=== PATIENT | female | born 2000 | race Hispanic/Latino ===

== ENCOUNTER 2023-09-25 10:46 | Inpatient (IN) | payer SELFPAY ==
[~2023-09-25] VITALS: Ht 162.6 cm; Wt 87.5 kg
[2023-09-25 11:14] VITALS: O2SAT 98
[2023-09-25 11:19] LABS: BASOPHILS # (AUTO) 0.08 K/uL (0.00-0.20); BASOPHILS % (AUTO) 0.7 % (0.0-5.0); EOSINOPHILS # (AUTO) 0.05 K/uL (0.00-0.70); EOSINOPHILS % (AUTO) 0.4 % (0.0-8.0); HEMATOCRIT 32.8 % (36-48); IMMATURE GRANULOCYTE ABSOLUTE 0.05 K/uL (0-1); LYMPHOCYTES # (AUTO) 2.2 K/uL (1.0-4.8); LYMPHOCYTES % (AUTO) 18.8 % (21.0-51.0); MEAN CORPUSCULAR HEMOGLOBIN 23.1 pg (27.0-33.0); MEAN CORPUSCULAR HGB CONC 30.8 g/dL (32.0-36.0); MEAN CORPUSCULAR VOLUME 74.9 fL (79-99); MONOCYTES # (AUTO) 0.6 K/uL (0.1-1.0); MONOCYTES % (AUTO) 4.8 % (3.0-13.0); NEUTROPHILS # (AUTO) 8.8 K/uL (1.8-7.7); NEUTROPHILS % (AUTO) 74.9 % (40.0-77.0); PLATELET COUNT (AUTO) 339 K/uL (130-400); RED BLOOD CELL COUNT(AUTO) 4.38 MIL/uL (4.00-5.50); WHITE BLOOD COUNT (AUTO) 11.7 K/uL (4.8-10.8)
[2023-09-25] MEDS: 0.9%NACL 1000ML 1,000 ML IV ONE ×2 (11:19→14:19)
[2023-09-25 11:41] LABS: CREATININE 0.7 mg/dL (0.5-1.0); POTASSIUM 3.4 mmol/L (3.5-5.1)
[2023-09-25 11:44] LABS: INR 1.01 (0.85-1.15); PROTHROMBIN TIME 10.9 SEC (9.6-11.6)
[2023-09-25 11:45] LABS: PARTIAL THROMBOPLASTIN TIME 22.8 SEC (26.3-35.5)
[2023-09-25 12:06] LABS: ALBUMIN 3.4 g/dL (3.5-5.0); BILIRUBIN,TOTAL 0.3 mg/dL (0.2-1.0); TOTAL PROTEIN, SERUM 6.8 g/dL (6.0-8.3)
[2023-09-25 12:27] LABS: BILIRUBIN,URINE NEGATIVE (NEGATIVE); COLOR,URINE YELLOW (YELLOW); GLUCOSE, URINE (UA) 50 mg/dL (NEGATIVE); KETONES,URINE NEGATIVE (NEGATIVE); LEUKOCYTE ESTERASE ,URINE 500 Leu/uL (NEGATIVE); NITRATE,URINE NEGATIVE (NEGATIVE); OCCULT BLOOD,URINE NEGATIVE (NEGATIVE); PH,URINE 5.5 (5.0-8.0); PROTEIN,URINE 100 mg/dL (NEGATIVE); UROBILINOGEN,URINE 0.2 mg/dL (0.2-1.0)
[2023-09-25 12:31] LABS: ADD UA MICROSCOPIC YES; APPEARANCE,URINE HAZY (CLEAR)
[2023-09-25 12:35] LABS: BACTERIA,URINE MOD /HPF (None Seen); MUCUS,URINE MANY LPF (None Seen); SQUAMOUS EPITHELIAL CELL,UR MOD /HPF (0-2); WBC,URINE 26-50 /HPF (0-1)
[2023-09-25] MEDS: CEFTRIAXONE 1G VIAL IVPB ONE (14:18)
[2023-09-25 15:10] VITALS: BP 117/63; PULSE 70; RESP 20
[2023-09-25] MEDS: MEPERIDINE-PF 50 MG/ML SYG IM PRN (15:37)
[2023-09-25] MEDS: PROMETHAZINE HCL 25 MG/ML 1ML AMPULE IM PRN (15:37)
[2023-09-25 19:20] VITALS: BP 120/59; PULSE 77; RESP 20
[2023-09-25] MEDS: LACTATED RINGERS 1000ML 1,000 ML IV SCH (22:25)
[2023-09-25 23:55] VITALS: BP 121/65; PULSE 80; RESP 20
[2023-09-26] VITALS (25 sets, daily range): BP systolic 107–138; BP diastolic 53–79; PULSE 71–102; RESP 17–20
[2023-09-26 17:24] LABS: BASOPHILS # (AUTO) 0.04 K/uL (0.00-0.20); BASOPHILS % (AUTO) 0.4 % (0.0-5.0); EOSINOPHILS # (AUTO) 0.02 K/uL (0.00-0.70); EOSINOPHILS % (AUTO) 0.2 % (0.0-8.0); HEMATOCRIT 24.4 % (36-48); IMMATURE GRANULOCYTE ABSOLUTE 0.04 K/uL (0-1); LYMPHOCYTES # (AUTO) 2.5 K/uL (1.0-4.8); LYMPHOCYTES % (AUTO) 21.9 % (21.0-51.0); MEAN CORPUSCULAR HEMOGLOBIN 23.9 pg (27.0-33.0); MEAN CORPUSCULAR HGB CONC 29.9 g/dL (32.0-36.0); MONOCYTES # (AUTO) 0.6 K/uL (0.1-1.0); MONOCYTES % (AUTO) 5.7 % (3.0-13.0); NEUTROPHILS # (AUTO) 8.1 K/uL (1.8-7.7); NEUTROPHILS % (AUTO) 71.4 % (40.0-77.0); PLATELET COUNT (AUTO) 248 K/uL (130-400); RED BLOOD CELL COUNT(AUTO) 3.05 MIL/uL (4.00-5.50); WHITE BLOOD COUNT (AUTO) 11.3 K/uL (4.8-10.8)
[2023-09-26 17:40] LABS: CREATININE 0.5 mg/dL (0.5-1.0); POTASSIUM 3.6 mmol/L (3.5-5.1)
[2023-09-26] MEDS ORDERED: LIDOCAINE HCL MPF 1% 5ML VIAL ONE (18:52)
[2023-09-26] MEDS ORDERED: DEXAMETHASONE SOD PHOSPHATE 4 MG/ML 1ML VIAL ONE (18:52)
[2023-09-26] MEDS ORDERED: SUCCINYLCHOLINE CHLORIDE 20 MG/ML 10 ML VIAL ONE (18:54)
[2023-09-26] MEDS ORDERED: PROPOFOL 10 MG/ML 20ML VIAL IV ONE (18:54)
[2023-09-26] MEDS ORDERED: MIDAZOLAM HCL 1 MG/ML 2ML VIAL ONE (18:54)
[2023-09-26] MEDS ORDERED: ONDANSETRON 4MG INJ ONE (18:54)
[2023-09-26] MEDS ORDERED: ROCURONIUM BROMIDE 10MG/1ML 5ML VL ONE (18:54)
[2023-09-26] MEDS ORDERED: FENTANYL CITRATE PF 50 MCG/1 ML 2ML VIAL ONE ×2 (18:54→19:42)
[2023-09-26] MEDS: CEFAZOLIN SODIUM 1 GM VIAL ONE (19:37)
[2023-09-26] MEDS ORDERED: SUGAMMADEX SODIUM 200 MG/2 ML VIAL IV ONE (20:11)
[2023-09-26] MEDS ORDERED: NEOSTIGMINE METHYLSULFATE 1MG/ML IV ONE (20:14)
[2023-09-26] MEDS ORDERED: GLYCOPYRROLATE 0.2 MG/ML 5 ML VIAL ONE (20:14)
[2023-09-26] MEDS ORDERED: PROMETHAZINE HCL 25 MG/ML 1ML AMPULE IM PRN (20:30)
[2023-09-26] MEDS ORDERED: 0.9%NACL 10ML VIAL IVP PRN (20:30)
[2023-09-26] MEDS ORDERED: MEPERIDINE-PF 75 MG/ML SYG IM PRN (20:30)
[2023-09-26] MEDS: ACETAMINOPHEN 1,000 MG/100 ML VIAL IV ONE (20:56)
[2023-09-26] MEDS: ONDANSETRON 4MG INJ ONE (21:06)
[2023-09-26] MEDS: MEPERIDINE-PF 25 MG/ML SYG ONE (21:07)
[2023-09-26] MEDS: DEXTROSE 5 %-0.45 % NACL 1,000 ML IV PRN (22:17)
[2023-09-27 03:15] VITALS: BP 119/57; PULSE 97; RESP 17
[2023-09-27] MEDS ORDERED: BISACODYL 10 MG SUPP.RECT RC PRN (06:30)
[2023-09-27] MEDS ORDERED: IBUPROFEN 600 MG TABLET PO PRN (06:30)
[2023-09-27] MEDS ORDERED: SIMETHICONE 80 MG TAB.CHEW PO PRN (06:30)
[2023-09-27] MEDS ORDERED: HYDROCODONE/ACETAMINOPHEN 5/325 MG TAB PO PRN (06:30)
[2023-09-27] MEDS: ACETAMINOPHEN WITH CODEINE 1 TAB TAB PO PRN (06:46)
[2023-09-27 06:52] LABS: MEAN CORPUSCULAR HEMOGLOBIN 24.2 pg (27.0-33.0); MEAN CORPUSCULAR HGB CONC 31.4 g/dL (32.0-36.0); MEAN CORPUSCULAR VOLUME 77.1 fL (79-99); RED BLOOD CELL COUNT(AUTO) 3.63 MIL/uL (4.00-5.50); RED CELL DISTRIBUTION WIDTH 30.1 % (11.0-15.5); WHITE BLOOD COUNT (AUTO) 13.2 K/uL (4.8-10.8)
[2023-09-27 07:45] VITALS: BP 120/70; PULSE 67; RESP 18
[2023-09-27] MEDS: DOCUSATE SODIUM 100 MG CAP PO SCH (09:35)
[2023-09-27 12:00] VITALS: BP 124/52; PULSE 80; RESP 18
[2023-09-27 15:45] VITALS: BP 123/63; PULSE 72; RESP 18
[2023-09-27] MEDS: ACETAMINOPHEN 500 MG TABLET PO PRN (17:03)
== END 2023-09-27 18:35 | disposition home or self-care (01) | DRG 819 ==
LOC: EDH 10:46 → EDHIP 10:47 → UNDOADMIN 14:30 → EDHIP 14:30 → WSH 15:10 → EDHIP 15:10
PROVIDERS: ADMIT Obstetrics & Gynecology; ATTEND Obstetrics & Gynecology
PROC: 10D24ZZ Extraction of Products of Conception, Ectopic, Percutaneous Endoscopic Approach (ICD-10-PCS; principal; 2023-09-26 19:08)
DX: O00.102 Left tubal pregnancy without intrauterine pregnancy (principal); Z3A.08 8 weeks gestation of pregnancy
CPT/HCPCS: 36415; 76801; 80048; 80053; 81001; 83690; 84702; 85025; 85027; 85610; 85730; 86850; 86900; 86901; 86923; 87086; A4351; G0378; J0330; J0690; J0696; J1100; J2175; J2250; J2405; J2550; J2704; J2710; J3010; J3490; J7030; J7120; P9016; A4215; A4600; A4649; A4930; G0168

== ENCOUNTER 2024-07-24 20:52 | Emergency (ER) | payer MEDICAID ==
[~2024-07-24] VITALS: Ht 162.6 cm; Wt 90.7 kg
--- NOTE | 2024-07-24 21:06 | ERN ---
General Stated Complaint: FEVER ALL DAY Time Seen by MD: 20:53 Source: patient History of Present Illness Initial Comments 23-year-old female who states she has had a fever for the last 24 hours. No other associated symptoms. She states no nausea no vomiting no diarrhea no change in urination or defecation. No upper respiratory tract infection no shortness of breath no chest pain. The only other symptom besides fever is bilateral foot pain, she points to her metatarsal regions of her feet. She does not think she is no other sick members of the family. Patient has taken Tylenol and it has not helped with her fever. Allergies: Coded Allergies: No Known Drug Allergies (Unverified Allergy, Unknown, 09/25/23) Home Meds No Active Prescriptions or Reported Meds Past Medical History Past Medical History: No Pertinent History Past Surgical History: None Female( History) : 1 Para: 0 Aborts: 0 Constitutional: (-) chills, (-) diaphoresis, (-) fever, (-) malaise, (-) weakness, (-) other documentation EENTM: (-) eye pain, (-) blurred vision, (-) tearing, (-) double vision, (-) ear pain, (-) ear discharge, (-) nose pain, (-) nose congestion, (-) throat pain, (-) Throat swelling, (-) mouth pain, (-) tooth pain, (-) mouth swelling, (-) other documentation Respiratory: (-) cough, (-) orthopnea, (-) short of breath, (-) stridor, (-) wheezing, (-) other documentation Cardiovascular: (-) chest pain, (-) edema, (-) palpitations, (-) syncope, (-) dyspnea on exertion, (-) other documentation Gastrointestinal/Abdominal: (-) nausea, (-) vomiting, (-) diarrhea, (-) abdominal pain, (-) abdominal distention, (-) constipation, (-) rectal bleeding, (-) dark stool/melena, (-) other documentation Musculoskeletal: (-) Neck pain, (-) back pain, (-) Flank Pain, (-) joint pain, (-) joint swelling, (-) muscle pain, (-) muscle stiffness, (-) gout, (-) other documentation Skin: (-) laceration, (-) contusion, (-) abrasion, (-) abscess, (-) rash, (-) change in color, (-) change in hair, (-) change in nails, (-) diaphoresis, (-) dryness, (-) other documentation Neuro: (-) altered mental status, (-) headache, (-) syncope, (-) paralysis, (-) numbness, (-) seizure, (-) pre-existing deficit, (-) tremors, (-) weakness, (-) dizziness, (-) slurred speech, (-) vertigo, (-) other documentation Physical Exam General Appearance: (+) mild distress Orientation: (+) alert, (+) oriented x 3 Head/Face Trauma: No Eye: bilateral eye normal inspection, bilateral eye PERRL, bilateral eye EOMI Ear, Nose, Throat: (+) hearing grossly normal, (+) normal ENT inspection, (+) moist mucous membraine Neck: (+) normal inspection, (+) supple, (+) full range of motion Respiratory: (+) chest non-tender, (+) lungs clear, (+) well ventilated Heart: (+) regular, (+) no gallop Vascular: (+) no edema, (+) normal peripheral pulse Gastrointestinal: (+) soft, (+) non-tender, (+) bowel sound present Results Laboratory and Microbiology Lab and Micro Result Laboratory Tests Test 07/24/24 21:25 07/24/24 22:15 Urine Color YELLOW (YELLOW) Urine Appearance TURBID (CLEAR) Urine pH 5.5 (5.0-8.0) Urine Specific [place] 1.028 (1.001-1.031) Urine Protein 50 mg/dL (NEGATIVE) H Urine Glucose (UA) NEGATIVE mg/dL (NEGATIVE) Urine Ketones NEGATIVE mg/dL (NEGATIVE) Urine Occult Blood MODERATE (NEGATIVE) H Urine Nitrate NEGATIVE (NEGATIVE) Urine Bilirubin NEGATIVE mg/dL (NEGATIVE) Urine Urobilinogen 0.2 mg/dL (0.2-1.0) Urine Leukocyte Esterase 75 [place]/uL (NEGATIVE) H Urine RBC 6-10 /HPF (0-1) H Urine WBC 6-10 /HPF (0-1) H Urine Squamous Epithelial Cells MOD /HPF (0-2) Urine Amorphous Crystals (Auto) RARE /LPF (None Seen) Urine Bacteria MOD /HPF (None Seen) Urine HCG, Qualitative NEGATIVE (NEGATIVE) White Blood Count 7.1 K/uL (4.8-10.8) Red Blood Count 4.49 MIL/uL (4.00-5.50) Hemoglobin 13.1 g/dL (12.0-16.0) Hematocrit 39.4 % (36-48) Mean Corpuscular Volume 87.8 fL (79-99) Mean Corpuscular Hemoglobin 29.2 pg (27.0-33.0) Mean Corpuscular Hemoglobin Concent 33.2 g/dL (32.0-36.0) Red Cell Distribution Width 13.4 % (11.0-15.5) Platelet Count 279 K/uL (130-400) Mean Platelet Volume 10.3 fL (7.5-10.5) Immature Granulocyte % (Auto) 0.3 % (0-1) Neutrophils (%) (Auto) 79.8 % (40.0-77.0) H Lymphocytes (%) (Auto) 9.2 % (21.0-51.0) L Monocytes (%) (Auto) 10.3 % (3.0-13.0) Eosinophils (%) (Auto) 0.1 % (0.0-8.0) Basophils (%) (Auto) 0.3 % (0.0-5.0) Neutrophils # (Auto) 5.6 K/uL (1.8-7.7) Lymphocytes # (Auto) 0.7 K/uL (1.0-4.8) L Monocytes # (Auto) 0.7 K/uL (0.1-1.0) Eosinophils # (Auto) 0.01 K/uL (0.00-0.70) Basophils # (Auto) 0.02 K/uL (0.00-0.20) Absolute Immature Granulocyte (auto 0.02 K/uL (0-1) Nucleated Red Blood Cells 0.0 % (0.0-0.19) White Cell Morphology Comment See comments Sodium Level 136 mmol/L (136-145) Potassium Level 3.8 mmol/L (3.5-5.1) Chloride Level 104 mmol/L (101-111) Carbon Dioxide Level 25 mmol/L (21-32) Blood Urea Nitrogen 4 mg/dL (7-18) L Creatinine 0.6 mg/dL (0.5-1.0) Glomerular Filtration Rate Calc 128 mL/min (>90) Random Glucose 135 mg/dL (70-105) H Total Calcium 8.3 mg/dL (8.5-10.1) L MDM I do not know the cause of the patient's fever. Common things being common I will check for a urinary tract infection. I will give the patient fluid as well. We will do nasal swabs. We will give her some Tylenol for the fever as well. Patient's CBC is normal except for a left shift. Chemistry panel is normal. Urine shows a urinary tract infection. I will discharge her with some prescription for antibiotics. ED Course Orders Procedure Category Date Status Time Basic Metabolic Panel LAB 07/24/24 Complete 21: Cbc With Differential LAB 07/24/24 Complete 21:01 Influenza Type A & B, LAB 07/24/24 In Process Rapid 21:01 Rapid (Group A Strep) LAB 07/24/24 In Process 21:02 Urinalysis Profile LAB 07/24/24 Complete 21:01 Covid19 (Sars Antigen LAB 07/24/24 In Process Rapid) 21:01 ,Urine Test LAB 07/24/24 Complete 21:01 Lactated Ringers PHA 07/24/24 Complete 1000ml (Lactated 21:01 Culture Urine LOVE 07/24/24 In Process 22:36 Current Medications Medications (Trade) Dose Ordered Sig/Juni Route PRN Reason Start Time Stop Time Status Last Admin Dose Admin Lactated Ringer's (Lactated Ringers 1000ml) 1,000 ml BOLUS STAT IV 07/24/24 21:01 07/24/24 21:13 DC 07/24/24 22:39 Vital Signs Date Time Temp Pulse Resp B/P (MAP) Pulse Ox O2 Delivery O2 Flow Rate FiO2 07/24/24 22:41 98.8 73 18 143/73 98 Room Air* 0 21 07/24/24 21:22 100.6 102 20 141/91 100 Room Air DX & DISP Disposition: Discharge Departure Impression: Primary Impression: UTI (urinary tract infection) Condition: Stable Scripts Cephalexin Monohydrate (Keflex) 500 Mg Cap 500 MG PO QID for 7 Days, #28 CAP Prov: JOE GAVIRIA MD 07/24/24 Additional Instructions: You have a urinary tract infection please take the antibiotics as instructed. Please return if the fever does not get better in a few days if your urination becomes more and more painful if you become dehydrated. Referrals: SELF,REFERRAL (PCP) JOE GAVIRIA MD Jul 24, 2024 21:06
[2024-07-24 22:21] LABS: BASOPHILS # (AUTO) 0.02 K/uL (0.00-0.20); BASOPHILS % (AUTO) 0.3 % (0.0-5.0); EOSINOPHILS # (AUTO) 0.01 K/uL (0.00-0.70); EOSINOPHILS % (AUTO) 0.1 % (0.0-8.0); HEMATOCRIT 39.4 % (36-48); IMMATURE GRANULOCYTE ABSOLUTE 0.02 K/uL (0-1); LYMPHOCYTES # (AUTO) 0.7 K/uL (1.0-4.8); LYMPHOCYTES % (AUTO) 9.2 % (21.0-51.0); MEAN CORPUSCULAR HEMOGLOBIN 29.2 pg (27.0-33.0); MEAN CORPUSCULAR HGB CONC 33.2 g/dL (32.0-36.0); MEAN CORPUSCULAR VOLUME 87.8 fL (79-99); MONOCYTES # (AUTO) 0.7 K/uL (0.1-1.0); MONOCYTES % (AUTO) 10.3 % (3.0-13.0); NEUTROPHILS # (AUTO) 5.6 K/uL (1.8-7.7); NEUTROPHILS % (AUTO) 79.8 % (40.0-77.0); PLATELET COUNT (AUTO) 279 K/uL (130-400); RED BLOOD CELL COUNT(AUTO) 4.49 MIL/uL (4.00-5.50); RED CELL DISTRIBUTION WIDTH 13.4 % (11.0-15.5); WHITE BLOOD COUNT (AUTO) 7.1 K/uL (4.8-10.8)
[2024-07-24 22:29] LABS: CREATININE 0.6 mg/dL (0.5-1.0); POTASSIUM 3.8 mmol/L (3.5-5.1)
[2024-07-24 22:34] LABS: APPEARANCE,URINE TURBID (CLEAR); BILIRUBIN,URINE NEGATIVE (NEGATIVE); COLOR,URINE YELLOW (YELLOW); GLUCOSE, URINE (UA) NEGATIVE (NEGATIVE); KETONES,URINE NEGATIVE (NEGATIVE); LEUKOCYTE ESTERASE ,URINE 75 Leu/uL (NEGATIVE); NITRATE,URINE NEGATIVE (NEGATIVE); OCCULT BLOOD,URINE MODERATE (NEGATIVE); PH,URINE 5.5 (5.0-8.0); PROTEIN,URINE 50 mg/dL (NEGATIVE); UROBILINOGEN,URINE 0.2 mg/dL (0.2-1.0)
[2024-07-24 22:36] LABS: ADD UA MICROSCOPIC YES; HCG,QUALITATIVE URINE NEGATIVE (NEGATIVE)
[2024-07-24 22:39] LABS: BACTERIA,URINE MOD /HPF (None Seen); MUCUS,URINE FEW LPF (None Seen); SQUAMOUS EPITHELIAL CELL,UR MOD /HPF (0-2)
[2024-07-24] MEDS: LACTATED RINGERS 1000ML IV STA (22:39)
--- NOTE | 2024-07-24 23:12 | NUR ---
CALLED LAB FOR RESULTS OF SWABS. SWABS NOT IN LAB, SWABS COLLECTED AND SENT TO LAB
[2024-07-24] MEDS ORDERED: CEPH500B PO (23:33)
[2024-07-24 23:36] LABS: INFLUENZA TYPE A Negative For Type A (NEGATIVE); INFLUENZA TYPE B Negative For Type B (NEGATIVE)
[2024-07-24 23:40] LABS: COVID19 (SARS ANTIGEN RAPID) POSITIVE FOR SARS AG (NEGATIVE)
[2024-07-24] MEDS ORDERED: OSEL75 PO (23:44)
[2024-07-25 00:09] VITALS: BP 136/72; PULSE 76; RESP 16; TEMP 98.8; O2SAT 99
== END 2024-07-25 00:08 | disposition home or self-care (01) ==
LOC: EDH 20:52
DX: N39.0 Urinary tract infection, site not specified (principal); Z20.822 Contact with and (suspected) exposure to COVID-19
CPT/HCPCS: 99283; 96360; 87426; 80048; 85025; 87086; 87880; 87804 ×2; 81001; 81025; 36415; J7120